=== PATIENT | female | born 1985 | race Caucasian/White ===

== ENCOUNTER 2022-05-06 17:00 | Emergency (ER) | payer MEDICAID, OTHER ==
[2022-05-06 17:35] LABS: BILIRUBIN,URINE NEGATIVE (NEGATIVE); CLARITY,URINE CLEAR; COLOR,URINE YELLOW; GLUCOSE, URINE (UA) NEGATIVE (NEGATIVE); KETONES,URINE NEGATIVE (NEGATIVE); LEUKOCYTE ESTERASE ,URINE TRACE (NEGATIVE); NITRITE,URINE NEGATIVE (NEGATIVE); PROTEIN,URINE NEGATIVE (NEGATIVE)
[2022-05-06] MEDS ORDERED: METR-145 PO (17:35)
--- NOTE | 2022-05-06 17:35 | ED GU-Female ---
General Chief Complaint: - Reproductive Stated Complaint: VAGINAL BLEEDING; SUPRAPUBIC PAIN Source: patient Exam Limitations: no limitations History of Present Illness Date Seen by Provider: May 06, 2022 Time Seen by Provider: 17:02 Initial Comments 36yoF with PMH of cervical dysplasia coming in due to post-coital bleeding. Started this week, with the last episode happening today. The bleeding only last for couple minutes and then stops. LMP was roughly 3 and half weeks ago. She has had prior cervical freezing as well as colposcopies. She has not had follow-up in roughly 3 years because things were looking better. She is concerned that she could have cervical cancer versus an STD. She is been with the same boyfriend for some time, but they have not had any testing done with prior partners. There is no pain associated with this. She is also noticed some increase in white discharge that has a scent to it that she has never had before Allergies and Home Medications Allergies Coded Allergies: No Known Drug Allergies (Unverified , 05/06/22) Patient Home Medication List Home Medication List Reviewed: Yes Metronidazole (Metronidazole) 500 Mg Tablet, 500 MG PO BID Prescribed by: EMY MORALES on 05/06/22 5533 Review of Systems Review of Systems Constitutional: No fever EENTM: No blurred vision Respiratory: no symptoms reported Cardiovascular: no symptoms reported Gastrointestinal: no symptoms reported Genitourinary: other (vaginal bleeding) Musculoskeletal: no symptoms reported Skin: no symptoms reported Psychiatric/Neurological: No Symptoms Reported Endocrine: No Symptoms Reported Hematologic/Lymphatic: No Symptoms Reported All Other Systemes Reviewed Negative Unless Noted: Yes Past Nsmjnwb-Mtsguc-Lmykuw Hx Patient Social History Tobacco Use?: No Use of E-Cig and/or Vaping dev: Yes E-Cig or Vaping type used: Nicotine Substance use?: No Alcohol Use?: No Past Medical History Surgeries: Yes (colposcopy) Physical Exam Vital Signs Vital Signs - First Documented 05/06/22 17:06 Temp 37.6 Pulse 108 Resp 16 B/P (MAP) 156/105 (122) Pulse Ox 99 O2 Delivery Room Air Capillary Refill : Height, Weight, BMI Height: '" Weight: lbs. oz. kg; BMI Method: General Appearance: WD/WN, no apparent distress HEENT: PERRL/EOMI, normal ENT inspection, pharynx normal Neck: non-tender, full range of motion, supple, normal inspection Cardiovascular: regular rate, rhythm, no edema, no murmur Respiratory: chest non-tender, lungs clear, normal breath sounds, no respiratory distress, no accessory muscle use Gastrointestinal: normal bowel sounds, non tender, soft; No distended, No guarding, No rebound Pelvic: normal external exam, normal adnexa, no cerv. motion tender, no masses, other (Small amount of fresh blood near the cervix, no active bleeding, no tears seen, no obvious mass or lesion on the cervix, white discharge with fishy odor) Back: normal inspection, no CVA tenderness Extremities: normal range of motion, non-tender, normal inspection, no pedal edema, no calf tenderness, normal capillary refill Neurologic/Psychiatric: no motor/sensory deficits, alert, normal mood/affect Skin: normal color, warm/dry Lymphatic: no adenopathy Progress/Results/Core Measures Suspected Sepsis SIRS Temperature: Pulse: Respiratory Rate: Blood Pressure / Mean: Results/Orders Lab Results Laboratory Tests Test 05/06/22 17:07 Range/Units Urine Color YELLOW Urine Clarity CLEAR Urine pH 6.0 5-9 Urine Specific [place] 1.025 H 1.016-1.022 Urine Protein NEGATIVE NEGATIVE Urine Glucose (UA) NEGATIVE NEGATIVE Urine Ketones NEGATIVE NEGATIVE Urine Nitrite NEGATIVE NEGATIVE Urine Bilirubin NEGATIVE NEGATIVE Urine Urobilinogen 0.2 < = 1.0 MG/DL Urine Leukocyte Esterase TRACE H NEGATIVE Urine RBC (Auto) 3+ H NEGATIVE Urine RBC 0-2 /HPF Urine WBC 5-10 H /HPF Urine Squamous Epithelial Cells >50 H /HPF Urine Crystals NONE /LPF Urine Bacteria MODERATE H /HPF Urine Casts NONE /LPF Urine Mucus LARGE H /LPF Urine Culture Indicated NO My Orders Orders - EMY MORALES MD Ua Culture If Indicated (05/06/22 17:04) Urine Bedside (05/06/22 17:04) Neis Levi Dna Urine Test (05/06/22 17:27) Chlamydia Trachomatis Urine (05/06/22 17:27) Vital Signs/I&O 05/06/22 17:06 Temp 37.6 Pulse 108 Resp 16 B/P (MAP) 156/105 (122) Pulse Ox 99 O2 Delivery Room Air Capillary Refill : Progress Note : Progress Note 36-year-old female with above history coming in due to vaginal bleeding after intercourse. ABCs were intact and vitals were stable on presentation. Physical exam with a soft and nontender abdomen. Urinalysis without evidence of infection. Physical exam with some fresh blood near the cervical os but no active bleeding. No signs of trauma and no obvious signs of cancer on my exam. I did discuss with the patient that I would like her to see her movie operator given her history for a full reevaluation to be sure. She is agreeable to this. Clinical exam also consistent with bacterial vaginosis so we will send her a prescription. Departure Impression Primary Impression: PCB (post coital bleeding) Additional Impression: Bacterial vaginosis Disposition: HOME, SELF-CARE Condition: Stable Departure-Patient Inst. Decision time for Depature: 17:34 Referrals: MARQUIS HERNANDEZ MD (PCP) Primary Care Physician Patient Instructions: Bacterial Vaginosis ED Add. Discharge Instructions: You will be on the Flagyl for the next week. This is not a sexually transmitted disease and cannot be passed on from one partner to the other. Do not drink alcohol with it. Please follow-up with your movie operator to be sure nothing has been missed. The bleeding could be due to trauma from intercourse itself versus pathology with your cervix, so please follow-up with the movie operator. Your urine showed the possibility of a UTI, so we will send a second antibiotic for that that you will take for the next 5 days as well Scripts Nitrofurantoin Macrocrystal (Nitrofurantoin) 100 Mg Capsule 100 MG PO BID for 5 Days, #10 CAP 0 Refills Prov: EMY MORALES MD 05/06/22 Metronidazole (Metronidazole) 500 Mg Tablet 500 MG PO BID for 7 Days, #14 TAB 0 Refills Prov: EMY MORALES MD 05/06/22 Work/School Note: Work Release Form Date Seen in the Emergency Department: J 2021 Return to Work: May 07, 2022 Restrictions: No Restrictions EMY MORALES MD May 06, 2022 17:35
[2022-05-06 17:40] LABS: BACTERIA,URINE MODERATE /HPF; RBC,URINE 0-2 /HPF; SQUAMOUS EPITHELIAL CELL,UR >50 /HPF
[2022-05-06] MEDS ORDERED: NITR100C PO (17:43)
[2022-05-06 17:49] VITALS: BP 156/105
== END 2022-05-06 17:45 | disposition home or self-care (01) ==
LOC: ER FS 17:03
DX: N93.0 Postcoital and contact bleeding (principal); N76.0 Acute vaginitis; F17.290 Nicotine dependence, other tobacco product, uncomplicated
CPT/HCPCS: 36415; 81000; 84703; 87491; 87591; 99282

== ENCOUNTER 2022-09-01 12:00 | Emergency (ER) | payer MEDICAID ==
[~2022-09-01] VITALS: Ht 180 cm; Wt 98.6 kg
[~2022-09-01 12:00] MED LIST: METR-145 PO; NITR100C PO
[2022-09-01 12:10] LABS: BILIRUBIN,URINE NEGATIVE (NEGATIVE); COLOR,URINE YELLOW; GLUCOSE, URINE (UA) 1+ (NEGATIVE); KETONES,URINE TRACE (NEGATIVE); LEUKOCYTE ESTERASE ,URINE 1+ (NEGATIVE); NITRITE,URINE NEGATIVE (NEGATIVE); PH,URINE 5.5 (5-9); PROTEIN,URINE NEGATIVE (NEGATIVE)
[2022-09-01 12:13] LABS: BACTERIA,URINE FEW /HPF; CLARITY,URINE CLOUDY; WBC,URINE 50-100 /HPF
[2022-09-01 12:24] VITALS: BP 121/88
[2022-09-01] MEDS ORDERED: NITR100C PO (12:36)
--- NOTE | 2022-09-01 12:36 | ED GU-Female ---
General Chief Complaint: - Reproductive Stated Complaint: URINARY PAIN Nursing Triage Note: Patient has presented to ER with c of pain with urination for the last 5 days and getting worse today. Source: patient Exam Limitations: no limitations History of Present Illness Date Seen by Provider: Sep 01, 2022 Time Seen by Provider: 12:15 Initial Comments 37-year-old female patient without history of medical problems with LMP of about 1 month ago presented POV with complaining of burning with urination for the last 5 days. Patient complaining of dysuria and urinary frequency for the last 5 days that gradually getting worse with mild intermittent suprapubic pain. Patient denies fever and chills, flank pain, vaginal bleeding or discharge. Patient states she had 1 episode of nausea this morning. Timing/Duration: getting worse Severity/Quality: moderate Sexual [place] History: single partner Associated Symptoms: urinary frequency Allergies and Home Medications Allergies Coded Allergies: No Known Drug Allergies (Unverified , 05/06/22) Patient Home Medication List Home Medication List Reviewed: Yes Metronidazole (Metronidazole) 500 Mg Tablet, 500 MG PO BID Prescribed by: EMY MORALES on 05/06/22 1735 Nitrofurantoin Macrocrystal (Nitrofurantoin) 100 Mg Capsule, 100 MG PO BID Prescribed by: EMY MORALES on 05/06/22 1743 Nitrofurantoin Macrocrystal (Nitrofurantoin) 100 Mg Capsule, 100 MG PO BID Prescribed by: Tammy tompkins on 09/01/22 1236 Review of Systems Review of Systems Constitutional: see HPI EENTM: see HPI Respiratory: see HPI Cardiovascular: see HPI Gastrointestinal: see HPI Genitourinary: see HPI Musculoskeletal: see HPI Skin: see HPI Psychiatric/Neurological: See HPI Endocrine: See HPI Hematologic/Lymphatic: See HPI All Other Systemes Reviewed Negative Unless Noted: Yes Past Imdefuj-Esfnxz-Zslytq Hx Patient Social History Tobacco Use?: No Substance use?: No Alcohol Use?: No Past Medical History Surgeries: Yes (colposcopy) Physical Exam Vital Signs Vital Signs - First Documented 09/01/22 12:16 Temp 36.7 Pulse 101 Resp 14 B/P (MAP) 121/88 (99) Pulse Ox 100 O2 Delivery Room Air Capillary Refill : Height, Weight, BMI Height: '" Weight: lbs. oz. kg; 30.00 BMI Method: General Appearance: WD/WN HEENT: PERRL/EOMI, normal ENT inspection Neck: non-tender Cardiovascular: regular rate, rhythm, no edema, no gallop Respiratory: chest non-tender, lungs clear, normal breath sounds, no respiratory distress Gastrointestinal: normal bowel sounds, non tender, soft, no organomegaly Back: normal inspection, no CVA tenderness Extremities: normal range of motion, normal inspection Neurologic/Psychiatric: alert, oriented x 3 Skin: normal color, warm/dry Progress/Results/Core Measures Suspected Sepsis SIRS Temperature: Pulse: 101 Respiratory Rate: 14 Blood Pressure 121 /88 Mean: 99 Results/Orders Lab Results Laboratory Tests Test 09/01/22 12:06 Range/Units Urine Color YELLOW Urine Clarity CLOUDY Urine pH 5.5 5-9 Urine Specific [place] >=1.030 1.016-1.022 Urine Protein NEGATIVE NEGATIVE Urine Glucose (UA) 1+ H NEGATIVE Urine Ketones TRACE H NEGATIVE Urine Nitrite NEGATIVE NEGATIVE Urine Bilirubin NEGATIVE NEGATIVE Urine Urobilinogen 0.2 < = 1.0 MG/DL Urine Leukocyte Esterase 1+ H NEGATIVE Urine RBC (Auto) 1+ H NEGATIVE Urine RBC NONE /HPF Urine WBC 50-100 H /HPF Urine Squamous Epithelial Cells 10-25 H /HPF Urine Crystals NONE /LPF Urine Bacteria FEW H /HPF Urine Casts NONE /LPF Urine Mucus LARGE H /LPF Urine Culture Indicated YES My Orders Orders - TAMMY TOMPKINS MD Urinalysis (09/01/22 12:05) Urine Culture (09/01/22 12:06) Urine Bedside (09/01/22 12:19) Vital Signs/I&O 09/01/22 09/01/22 12:16 12:24 Temp 36.7 36.7 Pulse 101 101 Resp 14 14 B/P (MAP) 121/88 (99) 121/88 Pulse Ox 100 100 O2 Delivery Room Air Room Air Capillary Refill : Blood Pressure Mean: 99 Progress Note : Progress Note Evaluation of patient in ER showed 37-year-old female patient with complaining of dysuria and frequency for the last 5 days and 1 episode of vomiting this morning. Patient has a new sexual partner and had spermicide cream before intercourse. Her LMP was 1 month ago. Patient had unremarkable physical exam. Patient had positive bedside test. UA showed 50-100 WBC and bacteria. Patient became very upset about positive test. Prescription for nitrofurantoin was given and advised to follow-up with her primary care physician or [employer] CONDITION[employer] INST[employer]PERVIS[employer] and return to ER as needed. Departure Impression Primary Impression: Positive urine test Additional Impression: Urinary tract infection Qualified Codes: N39.0 - Urinary tract infection, site not specified Disposition: HOME, SELF-CARE Condition: Stable Departure-Patient Inst. Decision time for Depature: 12:35 Referrals: ADDIE JAMA APRN (PCP) Primary Care Physician MARQUIS HERNANDEZ MD (Family) Primary Care Physician Patient Instructions: Urinary Incontinence, Female (DC), Tests Add. 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 Voiced understanding. Scripts Nitrofurantoin Macrocrystal (Nitrofurantoin) 100 Mg Capsule 100 MG PO BID, #14 CAP 0 Refills Prov: TAMMY TOMPKINS MD 09/01/22 TAMMY TOMPKINS MD Sep 01, 2022 12:36
== END 2022-09-01 12:45 | disposition home or self-care (01) ==
LOC: EDUNIT# 12:00 → ER FS 12:01
DX: O23.40 Unspecified infection of urinary tract in pregnancy, unspecified trimester (principal); N39.0 Urinary tract infection, site not specified; Z3A.00 Weeks of gestation of pregnancy not specified
CPT/HCPCS: 81000; 84703; 87088; 99282

== ENCOUNTER 2022-09-17 19:13 | Emergency (ER) | payer MEDICAID ==
[~2022-09-17] VITALS: Ht 180.3 cm; Wt 100.0 kg
[2022-09-17 19:22] VITALS: BP 135/87
--- NOTE | 2022-09-17 19:48 | ED GU-Female ---
General Chief Complaint: OB < 20 WEEKS Stated Complaint: OB,SPOTTING Nursing Triage Note: Patient states that she started having pink bleeding approximately 30 minutes ago. Patient reports that she only has it when she wipes. Patient is and wanted to get checked out. Source: patient Exam Limitations: no limitations History of Present Illness Date Seen by Provider: Sep 17, 2022 Time Seen by Provider: 19:20 Initial Comments Patient is a 37-year-old G4, P3, estimated 6 to 7-week gestation who presents with painless pink vaginal bleeding starting 30 minutes prior to arrival. Patient states that is only present when its wipes. Denies cramping. Patient has not yet established with an OB. Patient is unsure of her Rh type. Timing/Duration: just prior to arrival Severity/Quality: mild Location: other Radiation: other Activities at Onset: other Modifying Factors: Improves With Vomiting Associated Symptoms: other Allergies and Home Medications Allergies Coded Allergies: No Known Drug Allergies (Unverified , 05/06/22) Patient Home Medication List Home Medication List Reviewed: Yes Metronidazole (Metronidazole) 500 Mg Tablet, 500 MG PO BID Prescribed by: EMY MORALES on 05/06/22 1735 Nitrofurantoin Macrocrystal (Nitrofurantoin) 100 Mg Capsule, 100 MG PO BID Prescribed by: EMY MORALES on 05/06/22 1743 Nitrofurantoin Macrocrystal (Nitrofurantoin) 100 Mg Capsule, 100 MG PO BID Prescribed by: Tammy carrington on 09/01/22 1236 Review of Systems Review of Systems Constitutional: see HPI Genitourinary: see HPI Past Akfljhm-Aikcjv-Wvcyqh Hx Patient Social History Tobacco Use?: No Use of E-Cig and/or Vaping dev: Yes E-Cig or Vaping type used: Nicotine Substance use?: No Alcohol Use?: No Pt feels they are or have been: No Past Medical History Surgeries: Yes (colposcopy) Last Menstrual Period: Jul 29, 2022 Physical Exam Vital Signs Vital Signs - First Documented 09/17/22 19:22 Temp 36.7 Pulse 89 Resp 16 B/P (MAP) 135/87 (103) Pulse Ox 95 O2 Delivery Room Air Capillary Refill : Less Than 3 Seconds Height, Weight, BMI Height: '" Weight: lbs. oz. kg; 30.00 BMI Method: General Appearance: WD/WN, no apparent distress Genital/Rectal: other ( deferred) Focused Exam Sepsis Stage: Ruled Out Progress/Results/Core Measures Suspected Sepsis SIRS Temperature: Pulse: 89 Respiratory Rate: 16 Blood Pressure 135 /87 Mean: 103 Results/Orders Vital Signs/I&O 09/17/22 19:22 Temp 36.7 Pulse 89 Resp 16 B/P (MAP) 135/87 (103) Pulse Ox 95 O2 Delivery Room Air Capillary Refill : Less Than 3 Seconds Blood Pressure Mean: 103 Departure Communication (Admissions) Patient with painless vaginal spotting in early first trimester . Patient with stated a positive blood type will obtain hCG quant, Rh type with OB follow-up. Differential diagnosis including, ectopic versus normal versus miscarriage discussed in detail with patient. Return precautions reviewed. Patient verbalizes understanding and agreement discharge instructions prior to departure. Impression Primary Impression: Vaginal bleeding affecting early Disposition: HOME, SELF-CARE Condition: Stable Departure-Patient Inst. Decision time for Depature: 19:45 Referrals: ADDIE JAMA APRN (PCP) Primary Care Physician MARQUIS HERNANDEZ MD (Family) Primary Care Physician ALISA BOLTON MD Patient Instructions: Bleeding in Early (DC) Add. Discharge Instructions: You were evaluated in the emergency department for bleeding in early . The cause of your symptoms has not been determined but may be related to possible miscarriage, ectopic or normal . Please obtain repeat labs in 48 hours and follow-up with SUPERVISOR [employer]AK[employer] in 2 days. Return to the ED if you develop new or worsening symptoms. All discharge instructions reviewed with patient and/or family. Voiced understanding. KARLA MITCHELL DO Sep 17, 2022 19:47
[2022-09-17 19:56] LABS: BILIRUBIN,URINE NEGATIVE (NEGATIVE); CLARITY,URINE CLOUDY; COLOR,URINE YELLOW; GLUCOSE, URINE (UA) NEGATIVE (NEGATIVE); KETONES,URINE NEGATIVE (NEGATIVE); LEUKOCYTE ESTERASE ,URINE NEGATIVE (NEGATIVE); NITRITE,URINE NEGATIVE (NEGATIVE); PROTEIN,URINE NEGATIVE (NEGATIVE)
[2022-09-17 20:09] LABS: BACTERIA,URINE FEW /HPF; CALCIUM OXALATE CRYSTALS,UR LARGE /LPF; RBC,URINE 0-2 /HPF; SQUAMOUS EPITHELIAL CELL,UR >50 /HPF
== END 2022-09-17 19:55 | disposition home or self-care (01) ==
LOC: EDUNIT# 19:13 → ER FS 19:14
DX: O20.9 Hemorrhage in early pregnancy, unspecified (principal); O99.331 Smoking (tobacco) complicating pregnancy, first trimester; F17.290 Nicotine dependence, other tobacco product, uncomplicated; Z28.310 Unvaccinated for COVID-19; Z3A.01 Less than 8 weeks gestation of pregnancy
CPT/HCPCS: 81000; 99282